=== PATIENT | female | born 1995 | race American Indian/Alaskan Native ===

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

== ENCOUNTER 2018-07-03 13:59 | Emergency (ER) | payer MEDICAID ==
[2018-07-03 14:04] VITALS: BMI 18.8
[2018-07-03 14:06] VITALS: BP 134/83; PULSE 92; RESP 20; TEMP 98.2; O2SAT 100
--- NOTE | 2018-07-03 16:12 | C.PDOC ---
History Of Present Illness 22 y/o female, otherwise well, presents to the ED complaining of a sore throat associated with cough, congestion, and rhinorrhea for the past week. States she also vomited once this morning. Patient's main complaint is "it hurts to breath" which she attributes to the phlegm in her throat. Otherwise she denies any fevers, SOB, wheezing, chest tightness, nausea, or diarrhea. Patient is speaking in full sentences, no distress on arrival. Also reports she had some left-sided abdominal pain yesterday at lunch, which resolved. Time Seen by Provider: 07/03/18 14:19 Chief Complaint (Nursing): Cough, Cold, Congestion History Per: Patient History/Exam Limitations: no limitations Onset/Duration Of Symptoms: Days Current Symptoms Are (Timing): Still Present Location Of Pain: Throat Sick Contacts (Context): None Past Medical History Reviewed: Historical Data, Nursing Documentation, Vital Signs Vital Signs: Last Vital Signs Temp 98.2 F 07/03/18 14:04 Pulse 92 H 07/03/18 14:04 Resp 20 07/03/18 14:04 BP 134/83 07/03/18 14:04 Pulse Ox 100 07/03/18 14:04 - Medical History PMH: Asthma (at childhood age) Family History: States: Unknown Family Hx - Social History Hx Alcohol Use: No Hx Substance Use: No - Immunization History Hx Tetanus Toxoid Vaccination: No Hx Influenza Vaccination: No Hx Pneumococcal Vaccination: No Review Of Systems Except As Marked, All Systems Reviewed And Found Negative. Constitutional: Negative for: Fever, Chills ENT: Positive for: Nose Discharge, Nose Congestion Cardiovascular: Negative for: Chest Pain Respiratory: Positive for: Cough. Negative for: Shortness of Breath, Wheezing Gastrointestinal: Positive for: Vomiting (x 1). Negative for: Nausea, Abdominal Pain (resolved), Diarrhea Skin: Negative for: Rash Neurological: Negative for: Weakness, Headache Physical Exam - Physical Exam Appears: Well, Non-toxic, No Acute Distress Skin: Warm, Dry, No Rash Head: Atraumatic, Normacephalic Eye(s): bilateral: Normal Inspection, PERRL, EOMI Oral Mucosa: Moist Neck: Supple, Other (+ Swelling to the anterior throat) Chest: Symmetrical Cardiovascular: Rhythm Regular, No Murmur Respiratory: Normal Breath Sounds, No Rales, No Rhonchi, No Wheezing, Other (Speaking in full sentences) Gastrointestinal/Abdominal: Soft, No Tenderness, No Distention Extremity: Bilateral: Atraumatic, Normal Color And Temperature, Normal ROM Neurological/Psych: Oriented x3, Normal Speech, Normal Cranial Nerves ED Course And Treatment O2 Sat by Pulse Oximetry: 100 (RA) Pulse Ox Interpretation: Normal Medical Decision Making Medical Decision Making: Impression: Sore throat, Swelling to anterior neck Plan: --Motrin 600 mg PO --Tylenol 975 mg PO --Pending TSH level Disposition Counseled Patient/Family Regarding: Studies Performed, Need For Followup, Rx Given - Disposition Disposition: HOME/ ROUTINE Disposition Time: 17:11 Condition: STABLE Prescriptions: Benzonatate [Tessalon Perles] 200 mg PO TID #30 sgl Ibuprofen [Motrin] 1 tab PO TID PRN #30 tab PRN Reason: Pain Instructions: Upper Respiratory Infection (ED) Forms: [facility] (French), General Discharge Instructions, Work Excuse - POA Present On Arrival: None - Clinical Impression Clinical Impression: Influenza-like illness - Scribe Statement The provider has reviewed the documentation as recorded by the Pari Garcia Provider Attestation: All medical record entries made by the Marvinibmario were at my direction and personally dictated by me. I have reviewed the chart and agree that the record accurately reflects my personal performance of the history, physical exam, medical decision making, and the department course for this patient. I have also personally directed, reviewed, and agree with the discharge instructions and disposition.
== END 2018-07-03 17:17 | disposition home or self-care (01) ==
LOC: C.ER 13:59
DX: J11.1 Influenza due to unidentified influenza virus with other respiratory manifestations (principal)